=== PATIENT | female | born 1955 | race Caucasian/White ===

== ENCOUNTER 2016-04-18 00:58 | Emergency (ER) | payer MEDICARE, MEDICAID ==
[~2016-04-18] VITALS: Ht 152.4 cm; Wt 63.6 kg
[~2016-04-18 00:58] MED LIST: ABILIFY20 MG PO; ABILIFY30 MG PO; ADDERALL XR20 MG PO; ADDERALL20 MG PO; ADDERALL5 MG PO; ALPRAZOLAM; AMBIEN 10MG10 MG PO; AMBIEN5 MG PO; AMOXICILLIN 50500 MG PO; AMOXICILLIN 8751 TAB PO; ANTIPYRINE AND15 ML OT; ANTIVERT 25MG25 MG PO; ATENOLOL50 MG PO; ATOMOXETINE; BACTRIM DS 8001 TAB PO; BUPROPION PO; BUTALBITAL/APAP1 TA1 PO; CELEBREX50 MG PO; CEPHALEXIN; CEPHALEXIN500 M1 PO; CETIRIZINE; CIPRO 500MG TA500 MG PO; CLARITIN 1010 MG/TAB PO; CLINDAMYCIN HC300 MG PO; CYMBALTA 60MG60 MG PO; CYMBALTA PO; EFFEXOR-XR150 MG PO; FIORICET 325 MG1 TAB; HYDROCODONE/APAP; HYGROTON 2525 MG/TAB; HYGROTON 2525 MG/TAB PO; HYGROTON25 MG PO; INDOCIN 25MG CA25 MG PO; K-DUR 10 MEQ T10 MEQ PO; K-DUR 2020 MEQ PO; K-DUR20 MEQ PO; K-TAB20 PO; LAMICTAL 25MG T25 MG PO; LAMICTAL200 MG PO; LEVAQUIN 5500 MG/TA1 PO; LEVBID PO; LEXAPRO 5MG5 MG PO; LITHIUM CA150 MG/CAP PO; LOPERAMIDE2 MG PO; LORATADINE10 MG PO; LORTAB 10/500 51 TAB PO; LORTAB 5/500 501 TAB PO; MAG-OX 400400 MG/TAB PO; MOTRIN 800800 MG/TAB PO; MULTIPLE VITAMI1 CAP PO; NAPROXEN EC500 MG PO; NICODERM C14 MG/PATC TD; NORCO 325 MG-101 TAB PO; NORCO 325 MG-51 TAB PO; OMNICEF 300MG300 MG PO; PERCOCET 325 MG1 TAB PO; PERCOCET 5/321 UDTAB PO; PERCOCET 650 MG1 TAB PO; PREMARIN PO; PREVACID 30MG30 MG PO; PRILOSEC 20MG20 MG PO; PROAIR HFA0.09 MG/AC IH; PYRIDIUM 100MG100 MG PO; REGLAN 10MG10 MG/TAB PO; REMERON30 MG PO; RT ADVAIR 228 DISKUS IH; SUDAFED 12HR120 MG PO; TESSALON PERLE200 MG PO; TOPAMAX 25MG25 M1 PO; ULTRAM 50MG TAB50 MG PO; UNABLE; UNABLE TO ASSESS; VALIUM 10MG10 MG/TAB PO; ZESTRIL 20MG TA20 MG PO; ZITHROMAX 250M250 MG PO; ZITHROMAX Z PA250 MG PO; ZOFRAN8 MG PO; ZYPREXA ZYD10 MG/TAB PO; [UNRECOGNIZED DRUG - OTHER] PO; [UNRECOGNIZED DRUG - REMARK]; permethrin
[2016-04-18 02:28] VITALS: BP 111/80; PULSE 88; TEMP 96.8
== END 2016-04-18 02:31 | disposition home or self-care (01) ==
LOC: COL.ER 00:58
DX: J06.9 Acute upper respiratory infection, unspecified (principal)

== ENCOUNTER 2016-05-22 14:34 | Emergency (ER) | payer MEDICARE, MEDICAID ==
[~2016-05-22] VITALS: Ht 152.4 cm; Wt 67.7 kg
[2016-05-22 14:48] VITALS: BP 110/96; TEMP 98.9
[2016-05-22 16:36] VITALS: PULSE 77
== END 2016-05-22 16:36 | disposition home or self-care (01) ==
LOC: COL.ER 14:34
DX: S70.01XA Contusion of right hip, initial encounter (principal); W01.190A Fall on same level from slipping, tripping and stumbling with subsequent striking against furniture, initial encounter; Y92.009 Unspecified place in unspecified non-institutional (private) residence as the place of occurrence of the external cause; I10 Essential (primary) hypertension; F17.210 Nicotine dependence, cigarettes, uncomplicated

== ENCOUNTER → 2016-09-09 | Outpatient (CLI) | payer MEDICARE, MEDICAID ==
[~2016-09-09] MED LIST changes: +CEFTIN500 MG PO; +PERCOCET 325 MG1 TA2 PO
== END ==
LOC: BHSO 13:37
DX: F31.73 Bipolar disorder, in partial remission, most recent episode manic (principal)

== ENCOUNTER 2016-10-06 11:28 | Emergency (ER) | payer MEDICARE, MEDICAID ==
[~2016-10-06] VITALS: Ht 152.4 cm; Wt 63.6 kg
[~2016-10-06 11:28] MED LIST changes: -CEFTIN500 MG PO; -PERCOCET 325 MG1 TA2 PO
[2016-10-06 11:33] VITALS: BP 119/79; PULSE 87; TEMP 98
== END 2016-10-06 13:08 | disposition home or self-care (01) ==
LOC: COL.ER 11:28
DX: S22.32XA Fracture of one rib, left side, initial encounter for closed fracture (principal); F32.9 Major depressive disorder, single episode, unspecified; G43.909 Migraine, unspecified, not intractable, without status migrainosus; I10 Essential (primary) hypertension; K58.9 Irritable bowel syndrome, unspecified; F41.9 Anxiety disorder, unspecified; Z87.891 Personal history of nicotine dependence; Z90.12 Acquired absence of left breast and nipple; Z98.818 Other dental procedure status; W01.190A Fall on same level from slipping, tripping and stumbling with subsequent striking against furniture, initial encounter; Y92.009 Unspecified place in unspecified non-institutional (private) residence as the place of occurrence of the external cause

== ENCOUNTER 2016-10-16 14:35 | Emergency (ER) | payer MEDICARE, MEDICAID ==
[~2016-10-16] VITALS: Ht 152.4 cm; Wt 68.2 kg
[2016-10-16 14:41] VITALS: BP 109/63; TEMP 98.5
[2016-10-16 17:20] LABS: PH 6 (5-8); SQUAMOUS EPITHELIAL 0-2 /hpf; URINE APPEARANCE Clear; URINE BACTERIA None Seen /hpf; URINE BILIRUBIN Negative (NEGATIVE); URINE BLOOD Negative (NEGATIVE); URINE COLOR Yellow; URINE GLUCOSE Negative (NEGATIVE); URINE KETONE Negative (NEGATIVE); URINE RBC 0-2 /hpf; URINE UROBILINOGEN Negative (NEGATIVE)
[2016-10-16] MEDS ORDERED: PERCOCET 325 MG1 TA2 PO (19:00)
[2016-10-16] MEDS ORDERED: LEVAQUIN 5500 MG/TA1 PO (19:14)
[2016-10-16 19:17] VITALS: PULSE 84
== END 2016-10-16 19:17 | disposition home or self-care (01) ==
LOC: COL.ER 14:35
PROVIDERS: Nurse Practitioner
DX: S22.32XD Fracture of one rib, left side, subsequent encounter for fracture with routine healing (principal); W01.190D Fall on same level from slipping, tripping and stumbling with subsequent striking against furniture, subsequent encounter; R10.12 Left upper quadrant pain; J98.11 Atelectasis; I10 Essential (primary) hypertension; F32.9 Major depressive disorder, single episode, unspecified; F90.9 Attention-deficit hyperactivity disorder, unspecified type; F41.9 Anxiety disorder, unspecified; Z87.891 Personal history of nicotine dependence
CPT/HCPCS: A9284

== ENCOUNTER 2016-11-04 18:27 | Emergency (ER) | payer MEDICARE, MEDICAID ==
[~2016-11-04] VITALS: Ht 152.4 cm; Wt 63.6 kg
[~2016-11-04 18:27] MED LIST changes: +PERCOCET 325 MG1 TA2 PO
[2016-11-04 18:29] VITALS: TEMP 99.4
[2016-11-04 19:32] LABS: BASO # 0.1 (0.0-0.2); BASO % 0.7 % (0.0-2.0); EOS # 0.4 (0.0-0.7); EOS % 3.4 % (0-4.0); GRAN # 5.8 (1.4-6.5); GRAN % 56.2 % (42.2-75.2); HEMATOCRIT 41.9 % (37.0-47.0); HEMOGLOBIN 14.2 g/dl (12.5-16.0); LYMPH # 3.1 (1.2-3.4); LYMPH % 29.8 % (20.0-51.0); MEAN CELL VOLUME 84 fl (80.0-100.0); MEAN CORPUSCULAR HEMOGLOBIN 28 pg (27.0-31.0); MEAN CORPUSCULAR HGB CONC 34 g/dl (33.0-37.0); MEAN PLATELET VOLUME 10.3 fl (7.4-10.4); MONO % 9.4 % (1.7-9.3); PLATELET COUNT 289 K/mm3 (130-400); RED BLOOD COUNT 5.01 M/mm3 (4.10-5.30); REDCELL DISTRIBUTION WIDTH-CV 13.7 % (11.5-14.5); WHITE BLOOD COUNT 10.3 K/mm3 (4.8-10.8)
[2016-11-04 19:35] LABS: ADJUSTED CALCIUM 9.2 mg/dL (8.4-10.2); ALBUMIN 4.2 gm/dL (3.5-5.0); BILIRUBIN,TOTAL 0.5 mg/dL (0.0-1.0); CALCIUM 9.4 mg/dL (8.4-10.2); CREATININE, serum 0.95 mg/dL (0.52-1.25); POTASSIUM 3.8 mmol/L (3.4-5.0); TOTAL PROTEIN 7.4 gm/dL (6.4-8.2)
[2016-11-04 19:57] LABS: PH 5 (5-8); URINE APPEARANCE Cloudy; URINE BACTERIA None Seen /hpf; URINE BILIRUBIN Negative (NEGATIVE); URINE BLOOD Negative (NEGATIVE); URINE COLOR Yellow; URINE GLUCOSE Negative (NEGATIVE); URINE KETONE Negative (NEGATIVE); URINE UROBILINOGEN Negative (NEGATIVE)
[2016-11-04 20:03] LABS: URINE WBC >50 /hpf
[2016-11-04] MEDS ORDERED: CEFTIN500 MG PO (21:21)
[2016-11-04 21:31] VITALS: BP 112/78; PULSE 84
== END 2016-11-04 21:39 | disposition home or self-care (01) ==
LOC: COL.ER 18:27
PROVIDERS: Physician Assistant
DX: M54.89 Other dorsalgia (principal); N39.0 Urinary tract infection, site not specified; J98.11 Atelectasis; R06.02 Shortness of breath; R07.89 Other chest pain; R07.1 Chest pain on breathing; I10 Essential (primary) hypertension; F31.9 Bipolar disorder, unspecified; F90.9 Attention-deficit hyperactivity disorder, unspecified type

== ENCOUNTER 2016-12-11 11:45 | Emergency (ER) | payer MEDICARE, MEDICAID ==
[~2016-12-11] VITALS: Ht 152.4 cm; Wt 63.6 kg
[~2016-12-11 11:45] MED LIST changes: +CEFTIN500 MG PO
[2016-12-11 11:46] VITALS: TEMP 98.7
[2016-12-11 12:21] LABS: BASO # 0.1 (0.0-0.2); BASO % 0.8 % (0.0-2.0); EOS # 0.4 (0.0-0.7); EOS % 4.8 % (0-4.0); GRAN # 5.5 (1.4-6.5); GRAN % 65.9 % (42.2-75.2); HEMATOCRIT 41.1 % (37.0-47.0); HEMOGLOBIN 13.9 g/dl (12.5-16.0); LYMPH # 1.8 (1.2-3.4); MEAN CELL VOLUME 86 fl (80.0-100.0); MEAN CORPUSCULAR HEMOGLOBIN 29 pg (27.0-31.0); MEAN CORPUSCULAR HGB CONC 34 g/dl (33.0-37.0); MEAN PLATELET VOLUME 10.1 fl (7.4-10.4); MONO # 0.5 (0.1-0.6); PLATELET COUNT 249 K/mm3 (130-400); RED BLOOD COUNT 4.79 M/mm3 (4.10-5.30); REDCELL DISTRIBUTION WIDTH-CV 13.9 % (11.5-14.5); WHITE BLOOD COUNT 8.3 K/mm3 (4.8-10.8)
[2016-12-11 12:37] LABS: ADJUSTED CALCIUM 9.4 mg/dL (8.4-10.2); ALANINE AMINOTRANSFERASE 20 U/L (9-52); ALBUMIN 3.9 gm/dL (3.5-5.0); ALKALINE PHOSPHATASE 86 U/L (50-136); ANION GAP 9 mmol/L (7-16); BILIRUBIN,TOTAL 0.5 mg/dL (0.0-1.0); BLOOD UREA NITROGEN 13 mg/dL (7-17); CALCIUM 9.3 mg/dL (8.4-10.2); CARBON DIOXIDE 27 mmol/L (22-30); CHLORIDE 108 mmol/L (98-107); CREATININE, serum 1.02 mg/dL (0.52-1.25); GLUCOSE 107 mg/dL (74-106); POTASSIUM 4.3 mmol/L (3.4-5.0); SODIUM 144 mmol/L (137-145); TOTAL PROTEIN 6.9 gm/dL (6.4-8.2)
[2016-12-11 12:55] LABS: TROPONIN-I < 0.012 ng/mL (0.000-0.034)
[2016-12-11 14:07] VITALS: BP 110/66; PULSE 88
== END 2016-12-11 14:07 | disposition home or self-care (01) ==
LOC: COL.ER 11:45
PROVIDERS: Physician Assistant
DX: J40 Bronchitis, not specified as acute or chronic (principal); R09.1 Pleurisy; I10 Essential (primary) hypertension; F90.9 Attention-deficit hyperactivity disorder, unspecified type; F41.9 Anxiety disorder, unspecified; F31.9 Bipolar disorder, unspecified
CPT/HCPCS: J2270

== ENCOUNTER 2016-12-15 17:20 | Emergency (ER) | payer MEDICARE, MEDICAID ==
[~2016-12-15] VITALS: Ht 152.4 cm; Wt 63.6 kg
[2016-12-15 17:24] VITALS: TEMP 98.1
[2016-12-15 18:15] LABS: BASO # 0.1 (0.0-0.2); BASO % 0.7 % (0.0-2.0); EOS # 0.5 (0.0-0.7); EOS % 4.3 % (0-4.0); GRAN # 6.1 (1.4-6.5); HEMATOCRIT 39.8 % (37.0-47.0); HEMOGLOBIN 13.6 g/dl (12.5-16.0); LYMPH # 2.9 (1.2-3.4); LYMPH % 27.9 % (20.0-51.0); MEAN CELL VOLUME 85 fl (80.0-100.0); MEAN CORPUSCULAR HEMOGLOBIN 29 pg (27.0-31.0); MEAN CORPUSCULAR HGB CONC 34 g/dl (33.0-37.0); MEAN PLATELET VOLUME 10.9 fl (7.4-10.4); MONO # 0.8 (0.1-0.6); MONO % 7.6 % (1.7-9.3); PLATELET COUNT 262 K/mm3 (130-400); REDCELL DISTRIBUTION WIDTH-CV 13.5 % (11.5-14.5); WHITE BLOOD COUNT 10.4 K/mm3 (4.8-10.8)
[2016-12-15 18:22] LABS: INR 0.9 (0.8-3.0); PROTHROMBIN TIME 10.3 SECONDS (9.7-12.8)
[2016-12-15 18:23] LABS: ADJUSTED CALCIUM 9.3 mg/dL (8.4-10.2); ALANINE AMINOTRANSFERASE 23 U/L (9-52); ALBUMIN 3.8 gm/dL (3.5-5.0); ALKALINE PHOSPHATASE 85 U/L (50-136); ANION GAP 7 mmol/L (7-16); BILIRUBIN,TOTAL 0.4 mg/dL (0.0-1.0); BLOOD UREA NITROGEN 12 mg/dL (7-17); CALCIUM 9.1 mg/dL (8.4-10.2); CARBON DIOXIDE 24 mmol/L (22-30); CHLORIDE 107 mmol/L (98-107); CREATININE, serum 1.03 mg/dL (0.52-1.25); GLUCOSE 91 mg/dL (74-106); POTASSIUM 3.9 mmol/L (3.4-5.0); SODIUM 139 mmol/L (137-145); TOTAL PROTEIN 6.7 gm/dL (6.4-8.2)
[2016-12-15 18:25] LABS: PARTIAL THROMBOPLASTIN TIME 35.3 SECONDS (26.0-37.0)
[2016-12-15 18:42] LABS: TROPONIN-I < 0.012 ng/mL (0.000-0.034)
[2016-12-15 18:55] VITALS: BP 119/80; PULSE 84
== END 2016-12-15 19:05 | disposition home or self-care (01) ==
LOC: COL.ER 17:20
PROVIDERS: Family Medicine
DX: R07.89 Other chest pain (principal); F17.210 Nicotine dependence, cigarettes, uncomplicated
CPT/HCPCS: J3010

== ENCOUNTER 2016-12-19 14:42 | Emergency (ER) | payer MEDICARE, MEDICAID ==
[~2016-12-19] VITALS: Ht 152.4 cm; Wt 63.6 kg
[2016-12-19 14:48] VITALS: BP 103/67; PULSE 115; TEMP 97.3
[2016-12-19 17:04] LABS: BASO # 0.1 (0.0-0.2); BASO % 0.8 % (0.0-2.0); EOS # 0.3 (0.0-0.7); EOS % 3.4 % (0-4.0); GRAN # 5.5 (1.4-6.5); GRAN % 58.7 % (42.2-75.2); HEMATOCRIT 42.3 % (37.0-47.0); HEMOGLOBIN 14.4 g/dl (12.5-16.0); LYMPH # 2.6 (1.2-3.4); LYMPH % 27.8 % (20.0-51.0); MEAN CELL VOLUME 85 fl (80.0-100.0); MEAN CORPUSCULAR HEMOGLOBIN 29 pg (27.0-31.0); MEAN CORPUSCULAR HGB CONC 34 g/dl (33.0-37.0); MEAN PLATELET VOLUME 10.8 fl (7.4-10.4); MONO # 0.8 (0.1-0.6); PLATELET COUNT 281 K/mm3 (130-400); RED BLOOD COUNT 4.99 M/mm3 (4.10-5.30); REDCELL DISTRIBUTION WIDTH-CV 13.4 % (11.5-14.5); WHITE BLOOD COUNT 9.3 K/mm3 (4.8-10.8)
[2016-12-19 17:13] LABS: ADJUSTED CALCIUM 9.3 mg/dL (8.4-10.2); ALANINE AMINOTRANSFERASE 20 U/L (9-52); ALBUMIN 3.9 gm/dL (3.5-5.0); ALKALINE PHOSPHATASE 95 U/L (50-136); ANION GAP 8 mmol/L (7-16); BILIRUBIN,TOTAL 0.5 mg/dL (0.0-1.0); BLOOD UREA NITROGEN 16 mg/dL (7-17); CALCIUM 9.2 mg/dL (8.4-10.2); CARBON DIOXIDE 25 mmol/L (22-30); CHLORIDE 107 mmol/L (98-107); GLUCOSE 93 mg/dL (74-106); POTASSIUM 4.2 mmol/L (3.4-5.0); SODIUM 139 mmol/L (137-145); TOTAL PROTEIN 6.9 gm/dL (6.4-8.2)
[2016-12-19 17:25] LABS: TROPONIN-I < 0.012 ng/mL (0.000-0.034)
== END 2016-12-19 20:20 | disposition home or self-care (01) ==
LOC: COL.ER 14:42
PROVIDERS: Emergency Medicine
DX: R07.89 Other chest pain (principal); R07.81 Pleurodynia; I10 Essential (primary) hypertension; F31.9 Bipolar disorder, unspecified; F41.9 Anxiety disorder, unspecified; F90.9 Attention-deficit hyperactivity disorder, unspecified type; Z87.891 Personal history of nicotine dependence
CPT/HCPCS: J3010; J7030; Q9967

== ENCOUNTER → 2017-01-03 | Outpatient (CLI) | payer MEDICARE, MEDICAID ==
[~2017-01-03] MED LIST changes: +NORVASC 5MG5 MG/TAB PO; +TESSALON P100 MG/CAP PO
[2017-01-04 14:42] LABS: CHOLESTEROL RISK RATIO 3.9
== END ==
LOC: COL.LAB 14:49
PROVIDERS: Family Medicine
DX: E66.9 Obesity, unspecified (principal)

== ENCOUNTER 2017-01-18 18:22 | Emergency (ER) | payer MEDICARE, MEDICAID ==
[~2017-01-18] VITALS: Ht 152.4 cm; Wt 68.2 kg
[~2017-01-18 18:22] MED LIST changes: -NORVASC 5MG5 MG/TAB PO; -TESSALON P100 MG/CAP PO
[2017-01-18 18:26] VITALS: BP 126/90
[2017-01-18] MEDS ORDERED: ABILIFY30 MG PO (18:44)
[2017-01-18] MEDS ORDERED: CYMBALTA 60MG60 MG PO ×2 (18:45→18:46)
[2017-01-18] MEDS ORDERED: LEXAPRO 5MG5 MG PO (18:47)
[2017-01-18] MEDS ORDERED: NORVASC 5MG5 MG/TAB PO (18:47)
[2017-01-18 19:18] LABS: BASO # 0.1 (0.0-0.2); BASO % 0.4 % (0.0-2.0); EOS # 0.4 (0.0-0.7); EOS % 2.8 % (0-4.0); GRAN # 9.5 (1.4-6.5); GRAN % 74.8 % (42.2-75.2); HEMATOCRIT 38.1 % (37.0-47.0); HEMOGLOBIN 12.9 g/dl (12.5-16.0); LYMPH # 1.7 (1.2-3.4); LYMPH % 13.4 % (20.0-51.0); MEAN CELL VOLUME 85 fl (80.0-100.0); MEAN CORPUSCULAR HEMOGLOBIN 29 pg (27.0-31.0); MEAN CORPUSCULAR HGB CONC 34 g/dl (33.0-37.0); MEAN PLATELET VOLUME 10.4 fl (7.4-10.4); MONO % 7.9 % (1.7-9.3); PLATELET COUNT 269 K/mm3 (130-400); RED BLOOD COUNT 4.46 M/mm3 (4.10-5.30); REDCELL DISTRIBUTION WIDTH-CV 13.5 % (11.5-14.5); WHITE BLOOD COUNT 12.7 K/mm3 (4.8-10.8)
[2017-01-18 19:33] LABS: ADJUSTED CALCIUM 9.3 mg/dL (8.4-10.2); ALANINE AMINOTRANSFERASE 27 U/L (9-52); ALBUMIN 3.9 gm/dL (3.5-5.0); ALKALINE PHOSPHATASE 93 U/L (50-136); ANION GAP 7 mmol/L (7-16); BILIRUBIN,TOTAL 0.5 mg/dL (0.0-1.0); BLOOD UREA NITROGEN 13 mg/dL (7-17); CALCIUM 9.2 mg/dL (8.4-10.2); CARBON DIOXIDE 27 mmol/L (22-30); CHLORIDE 101 mmol/L (98-107); CREATININE, serum 0.88 mg/dL (0.52-1.25); GLUCOSE 102 mg/dL (74-106); POTASSIUM 4.7 mmol/L (3.4-5.0); SODIUM 136 mmol/L (137-145); TOTAL PROTEIN 7.2 gm/dL (6.4-8.2)
[2017-01-18 19:43] LABS: INFLUENZA B NEGATIVE
[2017-01-18 19:48] LABS: TROPONIN-I < 0.012 ng/mL (0.000-0.034)
[2017-01-18 19:49] LABS: LITHIUM < 0.2 mmol/L (0.6-1.2)
[2017-01-18] MEDS ORDERED: ZITHROMAX Z PA250 MG PO (20:04)
[2017-01-18] MEDS ORDERED: TESSALON P100 MG/CAP PO (20:04)
[2017-01-18 20:20] VITALS: PULSE 110; TEMP 98.7
== END 2017-01-18 20:30 | disposition home or self-care (01) ==
LOC: COL.ER 18:22
PROVIDERS: Emergency Medicine
DX: J06.9 Acute upper respiratory infection, unspecified (principal); F31.9 Bipolar disorder, unspecified; F41.9 Anxiety disorder, unspecified; Z87.891 Personal history of nicotine dependence
CPT/HCPCS: J7030

== ENCOUNTER 2017-01-21 18:02 | Emergency (ER) | payer MEDICARE, MEDICAID ==
[~2017-01-21] VITALS: Ht 152.4 cm; Wt 64.5 kg
[~2017-01-21 18:02] MED LIST changes: +NORVASC 5MG5 MG/TAB PO; +TESSALON P100 MG/CAP PO
[2017-01-21 18:04] VITALS: BP 115/75; TEMP 97.6
[2017-01-21] MEDS ORDERED: TESSALON P100 MG/CAP PO (18:48)
[2017-01-21 19:04] VITALS: PULSE 102
== END 2017-01-21 19:06 | disposition home or self-care (01) ==
LOC: COL.ER 18:02
DX: J20.9 Acute bronchitis, unspecified (principal); F31.9 Bipolar disorder, unspecified; F17.210 Nicotine dependence, cigarettes, uncomplicated

== ENCOUNTER → 2017-05-13 | Outpatient (CLI) | payer MEDICARE, MEDICAID | LOC: BHSO 15:33 | DX: F31.73 Bipolar disorder, in partial remission, most recent episode manic (principal) | CPT/HCPCS: G0463 ==

== ENCOUNTER 2017-08-14 13:59 | Emergency (ER) | payer MEDICARE, MEDICAID ==
[~2017-08-14] VITALS: Ht 152.4 cm; Wt 63.6 kg
[2017-08-14 14:01] VITALS: TEMP 97
[2017-08-14 14:57] LABS: BASO # 0.1 (0.0-0.2); BASO % 0.4 % (0.0-2.0); EOS # 0.4 (0.0-0.7); EOS % 3.2 % (0-4.0); GRAN # 8.8 (1.4-6.5); GRAN % 77.5 % (42.2-75.2); HEMATOCRIT 40.8 % (37.0-47.0); HEMOGLOBIN 13.5 g/dl (12.5-16.0); LYMPH # 1.4 (1.2-3.4); LYMPH % 12.5 % (20.0-51.0); MEAN CELL VOLUME 87 fl (80.0-100.0); MEAN CORPUSCULAR HEMOGLOBIN 29 pg (27.0-31.0); MEAN CORPUSCULAR HGB CONC 33 g/dl (33.0-37.0); MEAN PLATELET VOLUME 10.4 fl (7.4-10.4); MONO # 0.7 (0.1-0.6); PLATELET COUNT 270 K/mm3 (130-400); RED BLOOD COUNT 4.67 M/mm3 (4.10-5.30); REDCELL DISTRIBUTION WIDTH-CV 14.6 % (11.5-14.5)
[2017-08-14 15:13] LABS: ALANINE AMINOTRANSFERASE 22 U/L (9-52); ALBUMIN 3.7 gm/dL (3.5-5.0); ALKALINE PHOSPHATASE 93 U/L (50-136); ANION GAP 11 mmol/L (7-16); AST,SGOT 24 U/L (15-37); BILIRUBIN,TOTAL 0.3 mg/dL (0.0-1.0); BLOOD UREA NITROGEN 15 mg/dL (7-17); C-REACTIVE PROTEIN 2.5 mg/dL (0.0-0.9); CALCIUM 9.3 mg/dL (8.4-10.2); CARBON DIOXIDE 29 mmol/L (22-30); CHLORIDE 103 mmol/L (98-107); CREATINE KINASE 37 U/L (30-135); CREATININE, serum 0.96 mg/dL (0.52-1.25); GLUCOSE 111 mg/dL (74-106); SODIUM 143 mmol/L (137-145); TOTAL PROTEIN 7.3 gm/dL (6.4-8.2)
[2017-08-14 15:27] LABS: TROPONIN-I < 0.012 ng/mL (0.000-0.034)
[2017-08-14 15:53] LABS: COLLECTION METHOD CLEAN CATCH
[2017-08-14 16:03] LABS: MUCOUS Present /lpf; PH 6 (5-8); SQUAMOUS EPITHELIAL 0-2 /hpf; URINE APPEARANCE Clear; URINE BACTERIA None Seen /hpf; URINE BILIRUBIN Negative (NEGATIVE); URINE BLOOD Negative (NEGATIVE); URINE COLOR Yellow; URINE GLUCOSE Negative (NEGATIVE); URINE KETONE Negative (NEGATIVE); URINE LEUKOCYTE ESTERASE Trace (NEGATIVE); URINE NITRATE Negative (NEGATIVE); URINE PROTEIN(semi-quant) Negative (NEGATIVE); URINE RBC 0-2 /hpf; URINE UROBILINOGEN Negative (NEGATIVE)
[2017-08-14 18:22] LABS: TROPONIN-I < 0.012 ng/mL (0.000-0.034)
[2017-08-14 18:28] LABS: LITHIUM 0.3 mmol/L (0.6-1.2)
[2017-08-14 18:41] VITALS: BP 114/62; PULSE 97
[2017-08-14 18:49] LABS: LITHIUM 0.3 mmol/L (0.6-1.2)
== END 2017-08-14 19:04 | disposition home or self-care (01) ==
LOC: COL.ER 13:59
PROVIDERS: Emergency Medicine
DX: R07.9 Chest pain, unspecified (principal); Z86.59 Personal history of other mental and behavioral disorders
CPT/HCPCS: J7030; Q9967

== ENCOUNTER 2017-09-02 13:27 | Emergency (ER) | payer MEDICARE, MEDICAID ==
[~2017-09-02] VITALS: Ht 152.4 cm; Wt 63.6 kg
[2017-09-02 13:32] VITALS: BP 114/66; TEMP 98
[2017-09-02 15:09] VITALS: PULSE 92
== END 2017-09-02 15:10 | disposition home or self-care (01) ==
LOC: COL.ER 13:27
DX: G89.29 Other chronic pain (principal); M79.674 Pain in right toe(s); F90.9 Attention-deficit hyperactivity disorder, unspecified type

== ENCOUNTER → 2017-10-13 | Outpatient (CLI) | payer MEDICARE, MEDICAID | LOC: BHSO 10:40 | DX: F31.81 Bipolar II disorder (principal) | CPT/HCPCS: G0463 ==

== ENCOUNTER 2017-10-26 17:40 | Emergency (ER) | payer MEDICARE, MEDICAID ==
[~2017-10-26] VITALS: Ht 152.4 cm; Wt 63.6 kg
[2017-10-26 17:40] VITALS: BP 91/65; TEMP 97.6
[2017-10-26 18:55] LABS: BASO # 0.1 (0.0-0.2); BASO % 0.7 % (0.0-2.0); EOS # 0.3 (0.0-0.7); EOS % 3.3 % (0-4.0); GRAN # 5.5 (1.4-6.5); GRAN % 60.3 % (42.2-75.2); HEMATOCRIT 40.3 % (37.0-47.0); HEMOGLOBIN 13.4 g/dl (12.5-16.0); LYMPH # 2.5 (1.2-3.4); LYMPH % 26.8 % (20.0-51.0); MEAN CELL VOLUME 87 fl (80.0-100.0); MEAN CORPUSCULAR HEMOGLOBIN 29 pg (27.0-31.0); MEAN CORPUSCULAR HGB CONC 33 g/dl (33.0-37.0); MEAN PLATELET VOLUME 10.2 fl (7.4-10.4); MONO # 0.8 (0.1-0.6); MONO % 8.6 % (1.7-9.3); PLATELET COUNT 247 K/mm3 (130-400); RED BLOOD COUNT 4.66 M/mm3 (4.10-5.30); REDCELL DISTRIBUTION WIDTH-CV 13.5 % (11.5-14.5)
[2017-10-26 18:58] LABS: ALANINE AMINOTRANSFERASE 22 U/L (9-52); ALBUMIN 3.5 gm/dL (3.5-5.0); ALKALINE PHOSPHATASE 82 U/L (50-136); ANION GAP 7 mmol/L (7-16); AST,SGOT 19 U/L (15-37); BILIRUBIN,TOTAL 0.2 mg/dL (0.0-1.0); BLOOD UREA NITROGEN 13 mg/dL (7-17); CALCIUM 8.3 mg/dL (8.4-10.2); CARBON DIOXIDE 28 mmol/L (22-30); CHLORIDE 106 mmol/L (98-107); CREATININE, serum 1.05 mg/dL (0.52-1.25); GLUCOSE 88 mg/dL (74-106); POTASSIUM 3.9 mmol/L (3.4-5.0); PROTHROMBIN TIME 11.7 SECONDS (9.7-12.8); SODIUM 141 mmol/L (137-145); TOTAL PROTEIN 6.3 gm/dL (6.4-8.2)
[2017-10-26 19:12] LABS: TROPONIN-I < 0.012 ng/mL (0.000-0.034)
[2017-10-26 19:13] LABS: LITHIUM < 0.2 mmol/L (0.6-1.2)
[2017-10-26 19:50] VITALS: PULSE 60
== END 2017-10-26 19:50 | disposition home or self-care (01) ==
LOC: COL.ER 17:40
PROVIDERS: Emergency Medicine
DX: S70.01XA Contusion of right hip, initial encounter (principal); F31.9 Bipolar disorder, unspecified; I10 Essential (primary) hypertension; G43.909 Migraine, unspecified, not intractable, without status migrainosus; F90.9 Attention-deficit hyperactivity disorder, unspecified type; K58.9 Irritable bowel syndrome, unspecified; F12.90 Cannabis use, unspecified, uncomplicated; Z87.891 Personal history of nicotine dependence; W19.XXXA Unspecified fall, initial encounter; Y92.009 Unspecified place in unspecified non-institutional (private) residence as the place of occurrence of the external cause
CPT/HCPCS: J2405; J3010

== ENCOUNTER 2018-01-04 16:27 | Emergency (ER) | payer MEDICARE, MEDICAID ==
[~2018-01-04] VITALS: Ht 152.4 cm; Wt 63.6 kg
[2018-01-04 16:39] VITALS: TEMP 97.4
[2018-01-04 17:05] LABS: COLLECTION METHOD CLEAN CATCH
[2018-01-04 17:24] LABS: MUCOUS Present /lpf; PH 7 (5-8); SQUAMOUS EPITHELIAL 0-2 /hpf; URINE APPEARANCE Clear; URINE BACTERIA None Seen /hpf; URINE BILIRUBIN Negative (NEGATIVE); URINE BLOOD Negative (NEGATIVE); URINE COLOR Yellow; URINE GLUCOSE Negative (NEGATIVE); URINE KETONE Negative (NEGATIVE); URINE LEUKOCYTE ESTERASE Trace (NEGATIVE); URINE NITRATE Negative (NEGATIVE); URINE PROTEIN(semi-quant) Negative (NEGATIVE); URINE RBC 0-2 /hpf; URINE UROBILINOGEN Negative (NEGATIVE)
[2018-01-04 17:26] LABS: BASO # 0.1 (0.0-0.2); BASO % 0.7 % (0.0-2.0); EOS # 0.5 (0.0-0.7); EOS % 4.5 % (0-4.0); GRAN # 6.6 (1.4-6.5); GRAN % 62.2 % (42.2-75.2); HEMATOCRIT 40.6 % (37.0-47.0); HEMOGLOBIN 13.9 g/dl (12.5-16.0); LYMPH # 2.5 (1.2-3.4); MEAN CELL VOLUME 86 fl (80.0-100.0); MEAN CORPUSCULAR HEMOGLOBIN 30 pg (27.0-31.0); MEAN CORPUSCULAR HGB CONC 34 g/dl (33.0-37.0); MEAN PLATELET VOLUME 10.1 fl (7.4-10.4); MONO # 0.9 (0.1-0.6); MONO % 8.2 % (1.7-9.3); PLATELET COUNT 251 K/mm3 (130-400); RED BLOOD COUNT 4.71 M/mm3 (4.10-5.30); REDCELL DISTRIBUTION WIDTH-CV 13.8 % (11.5-14.5)
[2018-01-04 17:33] LABS: LITHIUM 0.3 mmol/L (0.6-1.2)
[2018-01-04 17:38] LABS: ALANINE AMINOTRANSFERASE 24 U/L (9-52); ALKALINE PHOSPHATASE 68 U/L (50-136); ANION GAP 3 mmol/L (7-16); AST,SGOT 19 U/L (15-37); BILIRUBIN,TOTAL 0.3 mg/dL (0.0-1.0); BLOOD UREA NITROGEN 17 mg/dL (7-17); C-REACTIVE PROTEIN 1.5 mg/dL (0.0-0.9); CALCIUM 9.2 mg/dL (8.4-10.2); CARBON DIOXIDE 29 mmol/L (22-30); CHLORIDE 104 mmol/L (98-107); CREATININE, serum 1.03 mg/dL (0.52-1.25); GLUCOSE 82 mg/dL (74-106); POTASSIUM 4.4 mmol/L (3.4-5.0); SODIUM 137 mmol/L (137-145)
[2018-01-04 17:47] LABS: TROPONIN-I < 0.012 ng/mL (0.000-0.034)
[2018-01-04 17:58] LABS: ERYTHROCYTE SEDIMENTATION RATE 12 mm/hr (0-30)
[2018-01-04 19:37] VITALS: BP 115/85; PULSE 80
== END 2018-01-04 19:43 | disposition home or self-care (01) ==
LOC: COL.ER 16:27
PROVIDERS: Emergency Medicine
DX: R51 Headache (principal); R53.81 Other malaise; I10 Essential (primary) hypertension
CPT/HCPCS: J2060; J2405; J7030

== ENCOUNTER 2018-02-12 18:15 | Emergency (ER) | payer MEDICARE, MEDICAID ==
[~2018-02-12] VITALS: Ht 152.4 cm; Wt 65.0 kg
[2018-02-12 18:26] VITALS: TEMP 96.4
[2018-02-12 18:53] LABS: BASO # 0.1 (0.0-0.2); BASO % 0.6 % (0.0-2.0); EOS # 0.4 (0.0-0.7); EOS % 3.4 % (0-4.0); GRAN # 6.5 (1.4-6.5); GRAN % 60.8 % (42.2-75.2); HEMOGLOBIN 15.4 g/dl (12.5-16.0); LYMPH % 28.2 % (20.0-51.0); MEAN CELL VOLUME 88 fl (80.0-100.0); MEAN CORPUSCULAR HEMOGLOBIN 30 pg (27.0-31.0); MEAN CORPUSCULAR HGB CONC 34 g/dl (33.0-37.0); MEAN PLATELET VOLUME 9.9 fl (7.4-10.4); MONO # 0.7 (0.1-0.6); MONO % 6.3 % (1.7-9.3); PLATELET COUNT 285 K/mm3 (130-400); RED BLOOD COUNT 5.11 M/mm3 (4.10-5.30); REDCELL DISTRIBUTION WIDTH-CV 13.7 % (11.5-14.5)
[2018-02-12 19:05] LABS: ALBUMIN 4.4 gm/dL (3.5-5.0); BILIRUBIN,TOTAL 0.5 mg/dL (0.0-1.0); C-REACTIVE PROTEIN 1.4 mg/dL (0.0-0.9); CALCIUM 9.1 mg/dL (8.4-10.2); CREATININE, serum 1.2 mg/dL (0.52-1.25); POTASSIUM 4.2 mmol/L (3.4-5.0); TOTAL PROTEIN 7.8 gm/dL (6.4-8.2)
[2018-02-12 19:46] LABS: COLLECTION METHOD CLEAN CATCH
[2018-02-12 19:57] LABS: MUCOUS Present /lpf; PH 6 (5-8); URINE APPEARANCE Clear; URINE BACTERIA None Seen /hpf; URINE BILIRUBIN Negative (NEGATIVE); URINE BLOOD Negative (NEGATIVE); URINE COLOR Yellow; URINE GLUCOSE Negative (NEGATIVE); URINE KETONE Negative (NEGATIVE); URINE LEUKOCYTE ESTERASE 1+ (NEGATIVE); URINE NITRATE Negative (NEGATIVE); URINE PROTEIN(semi-quant) Negative (NEGATIVE); URINE RBC 0-2 /hpf; URINE UROBILINOGEN Negative (NEGATIVE)
[2018-02-12] MEDS ORDERED: MACROBID 1100 MG/CAP PO (20:10)
[2018-02-12 20:23] VITALS: BP 104/72; PULSE 86
== END 2018-02-12 20:23 | disposition home or self-care (01) ==
LOC: COL.ER 18:15
PROVIDERS: Family Medicine
DX: N39.0 Urinary tract infection, site not specified (principal); R53.1 Weakness; I10 Essential (primary) hypertension; F17.210 Nicotine dependence, cigarettes, uncomplicated; K21.9 Gastro-esophageal reflux disease without esophagitis; F31.9 Bipolar disorder, unspecified
CPT/HCPCS: J7030

== ENCOUNTER 2018-03-13 14:18 | Emergency (ER) | payer MEDICARE, MEDICAID ==
[~2018-03-13] VITALS: Ht 152.4 cm; Wt 74.5 kg
[~2018-03-13 14:18] MED LIST changes: +MACROBID 1100 MG/CAP PO
[2018-03-13 14:32] VITALS: BP 110/67; PULSE 112; TEMP 97.5
== END 2018-03-13 15:45 | disposition left against medical advice (07) ==
LOC: COL.ER 14:18
DX: R51 Headache (principal)

== ENCOUNTER 2018-04-07 15:50 | Emergency (ER) | payer MEDICARE, MEDICAID ==
[~2018-04-07] VITALS: Ht 152.4 cm; Wt 65.0 kg
[2018-04-07 16:17] VITALS: BP 99/67; PULSE 105; TEMP 98.3
== END 2018-04-07 17:58 | disposition left against medical advice (07) ==
LOC: COL.ER 15:50
DX: R07.89 Other chest pain (principal); R20.2 Paresthesia of skin

== ENCOUNTER → 2018-04-18 | Outpatient (CLI) | payer MEDICARE, MEDICAID | LOC: BHSO 14:40 | DX: F31.76 Bipolar disorder, in full remission, most recent episode depressed (principal) | CPT/HCPCS: G0463 ==

== ENCOUNTER 2018-08-10 17:05 | Emergency (ER) | payer MEDICARE, MEDICAID ==
[~2018-08-10] VITALS: Ht 152.4 cm; Wt 63.6 kg
[2018-08-10 17:11] VITALS: TEMP 97
[2018-08-10 17:42] LABS: BASO % 0.7 % (0.0-2.0); EOS % 3.8 % (0-4.0); GRAN # 5.3 (1.4-6.5); GRAN % 52.1 % (42.2-75.2); HEMATOCRIT 48.3 % (37.0-47.0); HEMOGLOBIN 16.1 g/dl (12.5-16.0); LYMPH # 3.5 (1.2-3.4); LYMPH % 35.1 % (20.0-51.0); MEAN CELL VOLUME 89 fl (80.0-100.0); MEAN CORPUSCULAR HEMOGLOBIN 30 pg (27.0-31.0); MEAN CORPUSCULAR HGB CONC 33 g/dl (33.0-37.0); MEAN PLATELET VOLUME 10.1 fl (7.4-10.4); MONO # 0.8 (0.1-0.6); PLATELET COUNT 297 K/mm3 (130-400); RED BLOOD COUNT 5.44 M/mm3 (4.10-5.30); REDCELL DISTRIBUTION WIDTH-CV 13.2 % (11.5-14.5)
[2018-08-10 17:43] LABS: BASO # 0.1 (0.0-0.2); EOS # 0.4 (0.0-0.7)
[2018-08-10 17:53] LABS: ALBUMIN 4.4 gm/dL (3.5-5.0); BILIRUBIN,TOTAL 0.5 mg/dL (0.0-1.0); C-REACTIVE PROTEIN 1.7 mg/dL (0.0-0.9); CALCIUM 9.8 mg/dL (8.4-10.2); CREATININE, serum 1.13 (0.52-1.25); POTASSIUM 4.6 mmol/L (3.4-5.0); TOTAL PROTEIN 8.2 gm/dL (6.4-8.2)
[2018-08-10 17:55] LABS: LITHIUM 0.4 mmol/L (0.6-1.2)
[2018-08-10 18:18] LABS: ERYTHROCYTE SEDIMENTATION RATE 13 mm/hr (0-30)
[2018-08-10] MEDS ORDERED: CEFTIN500 MG PO (18:36)
[2018-08-10 19:33] VITALS: BP 103/74; PULSE 82
== END 2018-08-10 19:35 | disposition home or self-care (01) ==
LOC: COL.ER 17:05
PROVIDERS: Emergency Medicine
DX: J32.9 Chronic sinusitis, unspecified (principal); R51 Headache; I10 Essential (primary) hypertension
CPT/HCPCS: J2405; J3010; J7030

== ENCOUNTER 2018-08-23 20:12 | Emergency (ER) | payer MEDICARE, MEDICAID ==
[~2018-08-23] VITALS: Ht 152.4 cm; Wt 67.3 kg
[2018-08-23 20:12] VITALS: BP 122/94; TEMP 97.7
[2018-08-23 22:20] VITALS: PULSE 78
== END 2018-08-23 22:20 | disposition home or self-care (01) ==
LOC: COL.ER 20:12
DX: R51 Headache (principal); K27.9 Peptic ulcer, site unspecified, unspecified as acute or chronic, without hemorrhage or perforation; K58.9 Irritable bowel syndrome, unspecified; F99 Mental disorder, not otherwise specified
CPT/HCPCS: J2060; J2765; J3010; J7030

== ENCOUNTER → 2018-10-02 | Outpatient (CLI) | payer MEDICARE, MEDICAID | LOC: BHSO 13:41 | DX: F31.76 Bipolar disorder, in full remission, most recent episode depressed (principal) | CPT/HCPCS: G0463 ==

== ENCOUNTER 2018-12-04 18:45 | Emergency (ER) | payer MEDICARE, MEDICAID ==
[~2018-12-04] VITALS: Ht 152.4 cm; Wt 63.6 kg
[2018-12-04 18:49] VITALS: TEMP 99
[2018-12-04 19:30] LABS: BASO # 0.1 (0.0-0.2); BASO % 0.6 % (0.0-2.0); EOS # 0.5 (0.0-0.7); EOS % 5.8 % (0-4.0); GRAN % 53.2 % (42.2-75.2); HEMATOCRIT 41.6 % (37.0-47.0); HEMOGLOBIN 14.1 g/dl (12.5-16.0); LYMPH % 31.5 % (20.0-51.0); MEAN CELL VOLUME 87 fl (80.0-100.0); MEAN CORPUSCULAR HEMOGLOBIN 30 pg (27.0-31.0); MEAN CORPUSCULAR HGB CONC 34 g/dl (33.0-37.0); MEAN PLATELET VOLUME 10.2 fl (7.4-10.4); MONO # 0.8 (0.1-0.6); MONO % 8.6 % (1.7-9.3); PLATELET COUNT 269 K/mm3 (130-400); RED BLOOD COUNT 4.76 M/mm3 (4.10-5.30); REDCELL DISTRIBUTION WIDTH-CV 13.2 % (11.5-14.5)
[2018-12-04 19:42] LABS: ALBUMIN 3.8 gm/dL (3.5-5.0); BILIRUBIN,TOTAL 0.3 mg/dL (0.0-1.0); CALCIUM 9.7 mg/dL (8.4-10.2); CREATININE, serum 1.04 (0.52-1.25); POTASSIUM 4.4 mmol/L (3.4-5.0); TOTAL PROTEIN 6.6 gm/dL (6.4-8.2)
[2018-12-04 19:43] LABS: LITHIUM 0.3 mmol/L (0.6-1.2)
[2018-12-04 19:53] LABS: ERYTHROCYTE SEDIMENTATION RATE 13 mm/hr (0-30)
[2018-12-04 20:55] VITALS: BP 101/61; PULSE 94
== END 2018-12-04 20:58 | disposition home or self-care (01) ==
LOC: COL.ER 18:45
PROVIDERS: Emergency Medicine
DX: G89.18 Other acute postprocedural pain (principal); M79.671 Pain in right foot; I10 Essential (primary) hypertension; Z98.890 Other specified postprocedural states
CPT/HCPCS: J3010

== ENCOUNTER 2018-12-07 20:19 | Emergency (ER) | payer MEDICARE, MEDICAID ==
[~2018-12-07] VITALS: Ht 152.4 cm; Wt 63.6 kg
[2018-12-07 20:24] VITALS: BP 117/62; PULSE 84; TEMP 98
== END 2018-12-07 23:37 | disposition left against medical advice (07) ==
LOC: COL.ER 20:19
DX: M25.571 Pain in right ankle and joints of right foot (principal)

== ENCOUNTER 2018-12-28 15:13 | Emergency (ER) | payer MEDICARE, MEDICAID ==
[~2018-12-28] VITALS: Ht 152.4 cm; Wt 63.6 kg
[2018-12-28 15:36] VITALS: TEMP 98.5
[2018-12-28 19:05] VITALS: BP 111/70; PULSE 89
== END 2018-12-28 19:05 | disposition home or self-care (01) ==
LOC: COL.ER 15:13
DX: G43.909 Migraine, unspecified, not intractable, without status migrainosus (principal)
CPT/HCPCS: J1170; J2060; J2550; J7030

== ENCOUNTER 2019-01-03 19:45 | Emergency (ER) | payer MEDICARE, MEDICAID ==
[~2019-01-03] VITALS: Ht 152.4 cm; Wt 59.1 kg
[2019-01-03 21:28] VITALS: BP 100/75; PULSE 81
== END 2019-01-03 21:28 | disposition home or self-care (01) ==
LOC: COL.ER 19:45
DX: M25.571 Pain in right ankle and joints of right foot (principal); I10 Essential (primary) hypertension; F17.210 Nicotine dependence, cigarettes, uncomplicated; F31.9 Bipolar disorder, unspecified; G43.909 Migraine, unspecified, not intractable, without status migrainosus
CPT/HCPCS: J3010

== ENCOUNTER → 2019-02-16 | Outpatient (CLI) | payer MEDICARE, MEDICAID | LOC: COL.RAD 14:00 | DX: J40 Bronchitis, not specified as acute or chronic (principal); F17.210 Nicotine dependence, cigarettes, uncomplicated ==

== ENCOUNTER 2019-03-10 18:39 | Emergency (ER) | payer MEDICARE, MEDICAID ==
[~2019-03-10] VITALS: Ht 152.4 cm; Wt 64.1 kg
[2019-03-10 18:49] VITALS: BP 111/82; TEMP 97.5
[2019-03-10 19:58] LABS: BASO # 0.1 (0.0-0.2); EOS # 0.5 (0.0-0.7); EOS % 5.1 % (0-4.0); GRAN # 6.3 (1.4-6.5); HEMATOCRIT 44.7 % (37.0-47.0); HEMOGLOBIN 15.1 g/dl (12.5-16.0); LYMPH # 2.8 (1.2-3.4); LYMPH % 26.6 % (20.0-51.0); MEAN CELL VOLUME 88 fl (80.0-100.0); MEAN CORPUSCULAR HEMOGLOBIN 30 pg (27.0-31.0); MEAN CORPUSCULAR HGB CONC 34 g/dl (33.0-37.0); MEAN PLATELET VOLUME 10.3 fl (7.4-10.4); MONO # 0.7 (0.1-0.6); PLATELET COUNT 265 K/mm3 (130-400); RED BLOOD COUNT 5.06 M/mm3 (4.10-5.30); REDCELL DISTRIBUTION WIDTH-CV 13.5 % (11.5-14.5)
[2019-03-10 20:09] LABS: ALBUMIN 4.3 gm/dL (3.5-5.0); BILIRUBIN,TOTAL 0.4 mg/dL (0.0-1.0); CALCIUM 9.7 mg/dL (8.4-10.2); CREATININE, serum 1.41 (0.52-1.25); POTASSIUM 4.1 mmol/L (3.4-5.0); TOTAL PROTEIN 7.5 gm/dL (6.4-8.2); URIC ACID 5.7 mg/dL (2.5-6.2)
[2019-03-10] MEDS ORDERED: NORCO 325 MG-51 TAB PO (20:30)
[2019-03-10 20:40] VITALS: PULSE 91
== END 2019-03-10 20:40 | disposition home or self-care (01) ==
LOC: COL.ER 18:39
PROVIDERS: Nurse Practitioner Primary Care
DX: M79.674 Pain in right toe(s) (principal); I10 Essential (primary) hypertension; F31.9 Bipolar disorder, unspecified; F41.9 Anxiety disorder, unspecified; F90.9 Attention-deficit hyperactivity disorder, unspecified type

== ENCOUNTER → 2019-04-13 | Outpatient (CLI) | payer MEDICARE, MEDICAID | LOC: BHSO 11:25 | DX: F31.76 Bipolar disorder, in full remission, most recent episode depressed (principal) | CPT/HCPCS: G0463 ==

== ENCOUNTER 2019-06-22 23:17 | Emergency (ER) | payer MEDICARE, MEDICAID ==
[~2019-06-22] VITALS: Ht 152.4 cm; Wt 61.4 kg
[2019-06-22 23:19] VITALS: TEMP 98.6
[2019-06-22 23:41] LABS: BASO # 0.1 (0.0-0.2); BASO % 0.7 % (0.0-2.0); EOS # 0.7 (0.0-0.7); EOS % 6.5 % (0-4.0); GRAN # 5.7 (1.4-6.5); GRAN % 56.5 % (42.2-75.2); HEMATOCRIT 41.8 % (37.0-47.0); HEMOGLOBIN 13.8 g/dl (12.5-16.0); LYMPH # 2.8 (1.2-3.4); LYMPH % 27.4 % (20.0-51.0); MEAN CELL VOLUME 89 fl (80.0-100.0); MEAN CORPUSCULAR HEMOGLOBIN 29 pg (27.0-31.0); MEAN CORPUSCULAR HGB CONC 33 g/dl (33.0-37.0); MEAN PLATELET VOLUME 10.7 fl (7.4-10.4); MONO # 0.9 (0.1-0.6); MONO % 8.7 % (1.7-9.3); PLATELET COUNT 244 K/mm3 (130-400); RED BLOOD COUNT 4.72 M/mm3 (4.10-5.30); REDCELL DISTRIBUTION WIDTH-CV 13.4 % (11.5-14.5)
[2019-06-22 23:46] LABS: ALBUMIN 4.1 gm/dL (3.5-5.0); BILIRUBIN,TOTAL 0.3 mg/dL (0.0-1.0); CALCIUM 9.5 mg/dL (8.4-10.2); CREATININE, serum 1.11 (0.52-1.25); POTASSIUM 4.2 mmol/L (3.4-5.0); TOTAL PROTEIN 6.9 gm/dL (6.4-8.2)
[2019-06-23 04:33] VITALS: BP 100/59; PULSE 75
[2019-06-28] MEDS ORDERED: PHENERGAN 25 TA25 MG PO (06:03)
[2019-06-28] MEDS ORDERED: FIORICET 325 MG1 TA1 PO (07:25)
== END 2019-06-23 04:33 | disposition home or self-care (01) ==
LOC: COL.ER 23:17
PROVIDERS: Emergency Medicine
DX: G43.909 Migraine, unspecified, not intractable, without status migrainosus (principal); F31.9 Bipolar disorder, unspecified; I10 Essential (primary) hypertension; F41.9 Anxiety disorder, unspecified
CPT/HCPCS: J1630; J2060; J2405; J2550; J3010; J7030

== ENCOUNTER 2019-08-25 17:04 | Emergency (ER) | payer MEDICARE, MEDICAID ==
[~2019-08-25] VITALS: Ht 152.4 cm; Wt 63.6 kg
[~2019-08-25 17:04] MED LIST changes: +FIORICET 325 MG1 TA1 PO; +PHENERGAN 25 TA25 MG PO
[2019-08-25 17:08] VITALS: TEMP 97.4
[2019-08-25 17:32] LABS: BASO # 0.1 (0.0-0.2); BASO % 0.8 % (0.0-2.0); EOS # 0.3 (0.0-0.7); GRAN # 6.4 (1.4-6.5); GRAN % 65.5 % (42.2-75.2); HEMATOCRIT 49.2 % (37.0-47.0); HEMOGLOBIN 16.5 g/dl (12.5-16.0); LYMPH # 2.3 (1.2-3.4); LYMPH % 24.1 % (20.0-51.0); MEAN CELL VOLUME 87 fl (80.0-100.0); MEAN CORPUSCULAR HEMOGLOBIN 29 pg (27.0-31.0); MEAN CORPUSCULAR HGB CONC 34 g/dl (33.0-37.0); MEAN PLATELET VOLUME 10.1 fl (7.4-10.4); MONO # 0.6 (0.1-0.6); MONO % 6.2 % (1.7-9.3); PLATELET COUNT 234 K/mm3 (130-400); RED BLOOD COUNT 5.66 M/mm3 (4.10-5.30); REDCELL DISTRIBUTION WIDTH-CV 12.8 % (11.5-14.5)
[2019-08-25 17:41] LABS: ALANINE AMINOTRANSFERASE 18 U/L (4-34); ALBUMIN 4.6 gm/dL (3.5-5.0); ALKALINE PHOSPHATASE 94 U/L (50-136); ANION GAP 7 mmol/L (7-16); AST,SGOT 27 U/L (15-37); BILIRUBIN,TOTAL 0.7 mg/dL (0.0-1.0); BLOOD UREA NITROGEN 20 mg/dL (7-17); CALCIUM 10.1 mg/dL (8.4-10.2); CARBON DIOXIDE 26 mmol/L (22-30); CHLORIDE 104 mmol/L (98-107); CREATININE, serum 1.12 (0.52-1.25); GLUCOSE 137 mg/dL (74-106); POTASSIUM 4.3 mmol/L (3.4-5.0); SODIUM 138 mmol/L (137-145)
[2019-08-25 17:58] LABS: COLLECTION METHOD CLEAN CATCH
[2019-08-25 17:58] LABS: TROPONIN-I < 0.012 ng/mL (0.000-0.035)
[2019-08-25 18:08] LABS: MUCOUS Present /lpf; PH 5 (5-8); SQUAMOUS EPITHELIAL 0-2 /hpf; URINE APPEARANCE Hazy; URINE BACTERIA None Seen /hpf; URINE BILIRUBIN Positive (NEGATIVE); URINE BLOOD Negative (NEGATIVE); URINE COLOR Amber; URINE GLUCOSE Negative (NEGATIVE); URINE KETONE Trace (NEGATIVE); URINE LEUKOCYTE ESTERASE Trace (NEGATIVE); URINE NITRATE Negative (NEGATIVE); URINE PROTEIN(semi-quant) 1+ (NEGATIVE); URINE RBC 0-2 /hpf
[2019-08-25] MEDS ORDERED: FLEXERIL 1010 MG/TAB PO (19:41)
[2019-08-25] MEDS ORDERED: CEFTIN 250250 MG/TAB PO (19:41)
[2019-08-25 19:55] VITALS: BP 121/70; PULSE 86
== END 2019-08-25 19:55 | disposition home or self-care (01) ==
LOC: COL.ER 17:04
PROVIDERS: Nurse Practitioner
DX: M54.6 Pain in thoracic spine (principal); N39.0 Urinary tract infection, site not specified; I10 Essential (primary) hypertension; F41.9 Anxiety disorder, unspecified; F31.9 Bipolar disorder, unspecified; F17.210 Nicotine dependence, cigarettes, uncomplicated
CPT/HCPCS: J1170; J3360; J7030

== ENCOUNTER 2019-09-20 19:37 | Emergency (ER) | payer MEDICARE, MEDICAID ==
[~2019-09-20] VITALS: Ht 152.4 cm; Wt 63.6 kg
[~2019-09-20 19:37] MED LIST changes: +CEFTIN 250250 MG/TAB PO; +FLEXERIL 1010 MG/TAB PO
[2019-09-20 19:38] VITALS: TEMP 98.3
[2019-09-20] MEDS ORDERED: FIORICET 325 MG1 TA1 PO (21:06)
[2019-09-20] MEDS ORDERED: PROMETHAZINE12.5 M5 PO (21:45)
[2019-09-20 22:08] VITALS: BP 103/68; PULSE 80
== END 2019-09-20 22:38 | disposition home or self-care (01) ==
LOC: COL.ER 19:37
DX: G43.909 Migraine, unspecified, not intractable, without status migrainosus (principal); I10 Essential (primary) hypertension; F31.9 Bipolar disorder, unspecified; F90.9 Attention-deficit hyperactivity disorder, unspecified type; F17.210 Nicotine dependence, cigarettes, uncomplicated
CPT/HCPCS: J1885; J2550; J7030

== ENCOUNTER 2019-10-08 19:51 | Emergency (ER) | payer MEDICARE, MEDICAID ==
[~2019-10-08 19:51] MED LIST changes: +PROMETHAZINE12.5 M5 PO
[2019-10-08 19:52] VITALS: TEMP 98.2
[2019-10-08 20:00] VITALS: BP 119/71; PULSE 93
== END 2019-10-08 20:00 | disposition home or self-care (01) ==
LOC: COL.ER 19:51
DX: G43.909 Migraine, unspecified, not intractable, without status migrainosus (principal); F41.9 Anxiety disorder, unspecified; F31.9 Bipolar disorder, unspecified; F17.210 Nicotine dependence, cigarettes, uncomplicated
CPT/HCPCS: J1170; J1790; J1885

== ENCOUNTER → 2019-10-30 | Outpatient (CLI) | payer MEDICARE, MEDICAID | LOC: BHSO 13:53 | DX: F31.75 Bipolar disorder, in partial remission, most recent episode depressed (principal) | CPT/HCPCS: G0463 ==

== ENCOUNTER → 2020-01-21 | Outpatient (CLI) | payer MEDICARE, MEDICAID ==
[~2020-01-21] MED LIST changes: +ZOFRAN ODT4 MG PO
== END ==
LOC: MC.RAD 14:55
DX: Z12.31 Encounter for screening mammogram for malignant neoplasm of breast (principal)

== ENCOUNTER 2020-08-14 12:05 | Emergency (ER) | payer MEDICARE, MEDICAID ==
[~2020-08-14] VITALS: Ht 152.4 cm; Wt 62.7 kg
[~2020-08-14 12:05] MED LIST changes: +PREDNISONE20 MG PO
[2020-08-14 12:18] VITALS: TEMP 98.3
[2020-08-14 13:45] VITALS: BP 118/83; PULSE 65
== END 2020-08-14 13:45 | disposition home or self-care (01) ==
LOC: COL.ER 12:05
DX: S00.93XA Contusion of unspecified part of head, initial encounter (principal); S50.12XA Contusion of left forearm, initial encounter; I10 Essential (primary) hypertension; F31.9 Bipolar disorder, unspecified; F41.9 Anxiety disorder, unspecified; F90.9 Attention-deficit hyperactivity disorder, unspecified type; Z87.891 Personal history of nicotine dependence; Z88.0 Allergy status to penicillin; Z88.6 Allergy status to analgesic agent; Z79.899 Other long term (current) drug therapy; W06.XXXA Fall from bed, initial encounter; Y92.009 Unspecified place in unspecified non-institutional (private) residence as the place of occurrence of the external cause

== ENCOUNTER 2020-08-28 15:17 | Emergency (ER) | payer MEDICARE, MEDICAID ==
[~2020-08-28] VITALS: Ht 152.4 cm; Wt 66.4 kg
[2020-08-28] MEDS ORDERED: PERCOCET 325 MG1 TA2 PO (16:24)
[2020-08-28 16:31] VITALS: BP 115/67; PULSE 86; TEMP 98.3
== END 2020-08-28 16:31 | disposition home or self-care (01) ==
LOC: COL.ER 15:17
DX: S50.12XA Contusion of left forearm, initial encounter (principal); F90.9 Attention-deficit hyperactivity disorder, unspecified type; G47.00 Insomnia, unspecified; Z87.891 Personal history of nicotine dependence; Z79.899 Other long term (current) drug therapy; W01.198A Fall on same level from slipping, tripping and stumbling with subsequent striking against other object, initial encounter

== ENCOUNTER → 2020-10-16 | Outpatient (CLI) | payer MEDICARE, MEDICAID ==
[~2020-10-16] MED LIST changes: +DOXYCYCLINE 10100 MG PO; +PREDNISONE50 MG PO
== END ==
LOC: COL.RAD 12:47
DX: E04.1 Nontoxic single thyroid nodule (principal); E03.9 Hypothyroidism, unspecified; E05.90 Thyrotoxicosis, unspecified without thyrotoxic crisis or storm

== ENCOUNTER 2020-12-10 00:01 | Emergency (ER) | payer MEDICARE, MEDICAID ==
[~2020-12-10 00:01] MED LIST changes: -DOXYCYCLINE 10100 MG PO; -PREDNISONE50 MG PO
[2020-12-10 00:02] VITALS: TEMP 97.6
[2020-12-10 00:32] LABS: BASO # 0.1 (0.0-0.2); BASO % 0.6 % (0.0-2.0); EOS # 0.5 (0.0-0.7); EOS % 5.5 % (0-4.0); GRAN # 4.8 (1.4-6.5); GRAN % 52.7 % (42.2-75.2); HEMATOCRIT 40.2 % (37.0-47.0); HEMOGLOBIN 13.4 g/dl (12.5-16.0); LYMPH # 2.7 (1.2-3.4); LYMPH % 29.8 % (20.0-51.0); MEAN CELL VOLUME 85 fl (80.0-100.0); MEAN CORPUSCULAR HEMOGLOBIN 28 pg (27.0-31.0); MEAN CORPUSCULAR HGB CONC 33 g/dl (33.0-37.0); MEAN PLATELET VOLUME 10.6 fl (7.4-10.4); MONO % 11.2 % (1.7-9.3); PLATELET COUNT 237 K/mm3 (130-400); RED BLOOD COUNT 4.75 M/mm3 (4.10-5.30); REDCELL DISTRIBUTION WIDTH-CV 12.5 % (11.5-14.5)
[2020-12-10 00:44] LABS: ANION GAP 6 mmol/L (7-16); BLOOD UREA NITROGEN 16 mg/dL (7-17); CALCIUM 9.4 mg/dL (8.4-10.2); CARBON DIOXIDE 26 mmol/L (22-30); CHLORIDE 109 mmol/L (98-107); CREATININE, serum 0.76 (0.52-1.25); GLUCOSE 107 mg/dL (74-106); SODIUM 141 mmol/L (137-145)
[2020-12-10 01:09] LABS: STREP SCREEN NEGATIVE
[2020-12-10 01:30] LABS: TSH w REFLEX < 0.003 uIU/mL (0.350-4.940)
[2020-12-10] MEDS ORDERED: DOXYCYCLINE 10100 MG PO (02:26)
[2020-12-10] MEDS ORDERED: PREDNISONE50 MG PO (02:26)
[2020-12-10 02:40] VITALS: BP 124/70; PULSE 78
== END 2020-12-10 02:40 | disposition home or self-care (01) ==
LOC: COL.ER 00:01
PROVIDERS: Emergency Medicine
DX: R13.10 Dysphagia, unspecified (principal); I10 Essential (primary) hypertension; F41.9 Anxiety disorder, unspecified; F90.9 Attention-deficit hyperactivity disorder, unspecified type; F31.9 Bipolar disorder, unspecified; Z87.891 Personal history of nicotine dependence; Z79.899 Other long term (current) drug therapy

== ENCOUNTER → 2020-12-24 | Outpatient (CLI) | payer MEDICARE, MEDICAID ==
[~2020-12-24] MED LIST changes: +DOXYCYCLINE 10100 MG PO; +PREDNISONE50 MG PO
== END ==
LOC: COL.RAD 12:04
DX: Z13.6 Encounter for screening for cardiovascular disorders (principal); Z82.49 Family history of ischemic heart disease and other diseases of the circulatory system

== ENCOUNTER 2020-12-29 14:39 | Emergency (ER) | payer MEDICARE, MEDICAID ==
[~2020-12-29] VITALS: Ht 152.4 cm; Wt 64.1 kg
[2020-12-29 15:18] VITALS: TEMP 98.2
[2020-12-29 15:59] LABS: BASO # 0.1 (0.0-0.2); BASO % 0.6 % (0.0-2.0); EOS # 0.6 (0.0-0.7); EOS % 6.6 % (0-4.0); GRAN % 55.5 % (42.2-75.2); HEMATOCRIT 43.2 % (37.0-47.0); HEMOGLOBIN 14.2 g/dl (12.5-16.0); LYMPH # 2.2 (1.2-3.4); LYMPH % 24.9 % (20.0-51.0); MEAN CELL VOLUME 84 fl (80.0-100.0); MEAN CORPUSCULAR HEMOGLOBIN 28 pg (27.0-31.0); MEAN CORPUSCULAR HGB CONC 33 g/dl (33.0-37.0); MEAN PLATELET VOLUME 11.3 fl (7.4-10.4); MONO # 1.1 (0.1-0.6); MONO % 12.2 % (1.7-9.3); PLATELET COUNT 244 K/mm3 (130-400); RED BLOOD COUNT 5.16 M/mm3 (4.10-5.30); REDCELL DISTRIBUTION WIDTH-CV 12.6 % (11.5-14.5)
[2020-12-29 16:09] LABS: ALANINE AMINOTRANSFERASE 15 U/L (4-34); ALBUMIN 3.9 gm/dL (3.5-5.0); ALKALINE PHOSPHATASE 95 U/L (50-136); ANION GAP 0 mmol/L (7-16); AST,SGOT 52 U/L (15-37); BILIRUBIN,TOTAL 0.4 mg/dL (0.0-1.0); BLOOD UREA NITROGEN 21 mg/dL (7-17); CALCIUM 9.2 mg/dL (8.4-10.2); CARBON DIOXIDE 29 mmol/L (22-30); CHLORIDE 107 mmol/L (98-107); CREATININE, serum 0.82 (0.52-1.25); GLUCOSE 96 mg/dL (74-106); POTASSIUM 4.9 mmol/L (3.4-5.0); SODIUM 136 mmol/L (137-145)
[2020-12-29 16:20] LABS: TROPONIN-I < 0.012 ng/mL (0.000-0.035)
[2020-12-29 20:25] LABS: COLLECTION METHOD CLEAN CATCH
[2020-12-29 20:31] LABS: PH 7 (5-8); SQUAMOUS EPITHELIAL None Seen /hpf; URINE APPEARANCE Clear; URINE BACTERIA None Seen /hpf; URINE BILIRUBIN Negative (NEGATIVE); URINE BLOOD Negative (NEGATIVE); URINE COLOR Yellow; URINE GLUCOSE Negative (NEGATIVE); URINE KETONE Negative (NEGATIVE); URINE LEUKOCYTE ESTERASE Negative (NEGATIVE); URINE NITRATE Negative (NEGATIVE); URINE PROTEIN(semi-quant) Negative (NEGATIVE); URINE RBC 0-2 /hpf; URINE UROBILINOGEN Negative (NEGATIVE)
[2020-12-29 20:43] LABS: TRICYCLIC ANTIDEPRESS URINE NEGATIVE
[2020-12-29 21:40] VITALS: BP 100/88; PULSE 103
== END 2020-12-29 21:40 | disposition home or self-care (01) ==
LOC: COL.ER 14:39
PROVIDERS: Nurse Practitioner Family
DX: G43.909 Migraine, unspecified, not intractable, without status migrainosus (principal); F12.90 Cannabis use, unspecified, uncomplicated; F15.90 Other stimulant use, unspecified, uncomplicated; R29.6 Repeated falls; I10 Essential (primary) hypertension; F41.9 Anxiety disorder, unspecified; F90.9 Attention-deficit hyperactivity disorder, unspecified type; Z79.899 Other long term (current) drug therapy
CPT/HCPCS: J0595; J1200; J2405; J7030; Q9967

== ENCOUNTER → 2020-12-30 | Outpatient (CLI) | payer MEDICARE, MEDICAID | LOC: COL.RAD 14:11 | DX: R91.8 Other nonspecific abnormal finding of lung field (principal) ==

== ENCOUNTER 2021-01-07 21:07 | Emergency (ER) | payer MEDICARE, MEDICAID ==
[~2021-01-07] VITALS: Ht 152.4 cm; Wt 63.6 kg
[2021-01-07 22:21] VITALS: TEMP 98.1
[2021-01-08 00:50] VITALS: BP 114/70; PULSE 80
== END 2021-01-08 00:58 | disposition home or self-care (01) ==
LOC: COL.ER 21:07
DX: M25.552 Pain in left hip (principal); M54.5 Low back pain; F41.9 Anxiety disorder, unspecified; F32.9 Major depressive disorder, single episode, unspecified; F90.9 Attention-deficit hyperactivity disorder, unspecified type; W01.198A Fall on same level from slipping, tripping and stumbling with subsequent striking against other object, initial encounter

== ENCOUNTER 2021-01-12 18:39 | Emergency (ER) | payer MEDICARE, MEDICAID ==
[~2021-01-12] VITALS: Ht 167.6 cm; Wt 59.1 kg
[2021-01-12 18:43] VITALS: TEMP 98.6
[2021-01-12 21:30] VITALS: BP 120/75; PULSE 67
== END 2021-01-12 21:31 | disposition home or self-care (01) ==
LOC: COL.ER 18:39
DX: M25.552 Pain in left hip (principal); M25.511 Pain in right shoulder; K58.9 Irritable bowel syndrome, unspecified; Z79.899 Other long term (current) drug therapy; W01.0XXA Fall on same level from slipping, tripping and stumbling without subsequent striking against object, initial encounter

== ENCOUNTER → 2021-01-27 | Outpatient (CLI) | payer MEDICARE, MEDICAID | LOC: COL.RAD 08:00 | DX: E04.1 Nontoxic single thyroid nodule (principal); E05.90 Thyrotoxicosis, unspecified without thyrotoxic crisis or storm | CPT/HCPCS: A9516 ==

== ENCOUNTER 2021-03-07 10:23 | Emergency (ER) | payer MEDICARE, MEDICAID ==
[~2021-03-07] VITALS: Ht 152.4 cm; Wt 62.7 kg
[2021-03-07 10:24] VITALS: TEMP 98.3
[2021-03-07 11:40] VITALS: BP 137/82; PULSE 87
== END 2021-03-07 11:40 | disposition home or self-care (01) ==
LOC: COL.ER 10:23
DX: S20.20XA Contusion of thorax, unspecified, initial encounter (principal); K58.9 Irritable bowel syndrome, unspecified; Z87.891 Personal history of nicotine dependence; Z88.6 Allergy status to analgesic agent; Z79.899 Other long term (current) drug therapy; W01.0XXA Fall on same level from slipping, tripping and stumbling without subsequent striking against object, initial encounter

== ENCOUNTER → 2021-07-20 | Outpatient (CLI) | payer MEDICARE, MEDICAID | LOC: COL.RAD 12:56 | DX: E05.90 Thyrotoxicosis, unspecified without thyrotoxic crisis or storm (principal); E06.9 Thyroiditis, unspecified ==

== ENCOUNTER → 2021-07-28 | Outpatient (CLI) | payer MEDICARE, MEDICAID | LOC: COL.RAD 12:53 | DX: E05.00 Thyrotoxicosis with diffuse goiter without thyrotoxic crisis or storm (principal) | CPT/HCPCS: A9516 ==

== ENCOUNTER 2022-02-04 16:55 | Emergency (ER) | payer MEDICARE, MEDICAID ==
[~2022-02-04] VITALS: Ht 152.4 cm; Wt 63.6 kg
[2022-02-04 16:58] VITALS: BP 138/70; TEMP 97.8
[2022-02-04 18:17] VITALS: PULSE 89
== END 2022-02-04 18:17 | disposition home or self-care (01) ==
LOC: COL.ER 16:55
DX: G43.909 Migraine, unspecified, not intractable, without status migrainosus (principal)
CPT/HCPCS: J1200; J2765

== ENCOUNTER 2023-07-22 13:36 | Emergency (ER) | payer MEDICARE, MEDICAID ==
[~2023-07-22] VITALS: Ht 152.4 cm; Wt 54.5 kg
[~2023-07-22 13:36] MED LIST changes: +LIDODERM 5% PATC1 EA TP; +PRIL40 PO; +SINGULAIR 110 MG/TAB PO
[2023-07-22 13:40] VITALS: TEMP 97.7
[2023-07-22] MEDS ORDERED: ALEVE 220MG220 MG PO (13:49)
[2023-07-22] MEDS ORDERED: fentaNYL 50 MCG/ML 2 ML VIAL IV ONE (14:15)
[2023-07-22 14:31] LABS: BASO % 0.4 % (0.0-2.0); EOS # 0.2 K/mm3 (0.0-0.7); EOS % 2.9 % (0.0-4.0); GRAN # 5.3 K/mm3 (1.4-6.5); GRAN % 66.5 % (42.2-75.2); HEMATOCRIT 44.2 % (37.0-47.0); HEMOGLOBIN 14.7 g/dl (12.5-16.0); LYMPH # 1.8 K/mm3 (1.2-3.4); MEAN CELL VOLUME 84 fl (80.0-100.0); MEAN CORPUSCULAR HEMOGLOBIN 28 pg (27-31); MEAN CORPUSCULAR HGB CONC 33 g/dl (33.0-37.0); MEAN PLATELET VOLUME 10.3 fl (7.4-10.4); MONO # 0.6 K/mm3 (0.1-0.6); MONO % 7.1 % (1.7-9.3); PLATELET COUNT 265 K/mm3 (130-400); RED BLOOD COUNT 5.24 M/mm3 (4.10-5.30); REDCELL DISTRIBUTION WIDTH-CV 13.2 % (11.5-14.5)
[2023-07-22 14:56] LABS: ALANINE AMINOTRANSFERASE 14 U/L (0-55); ALBUMIN 3.4 g/dL (3.4-4.8); ALKALINE PHOSPHATASE 130 U/L (40-150); ANION GAP 10 mmol/L (7-16); AST,SGOT 15 U/L (5-34); BILIRUBIN,TOTAL 0.3 mg/dL (0.2-1.2); BLOOD UREA NITROGEN 17 mg/dL (10-20); CALCIUM 9.8 mg/dL (8.4-10.2); CHLORIDE 109 mEq/L (98-107); CREATININE, serum 0.87 mg/dL (0.57-1.11); GLUCOSE 120 mg/dL (70-99); POTASSIUM 4.5 mEq/L (3.5-4.5); SODIUM 141 mEq/L (136-145)
[2023-07-22 15:04] LABS: TROPONIN-I < 0.010 ng/mL (0.00-0.033)
[2023-07-22] MEDS ORDERED: Iohexol 350 - 100 ML VIAL IV ONE (15:20)
[2023-07-22] MEDS ORDERED: NS 100 ML IV SCH (15:21)
[2023-07-22 16:11] VITALS: BP 128/81; PULSE 98
== END 2023-07-22 16:03 | disposition home or self-care (01) ==
LOC: COL.ER 13:36
PROVIDERS: Nurse Practitioner Family
DX: R07.89 Other chest pain (principal); R07.2 Precordial pain; R06.02 Shortness of breath; Z88.6 Allergy status to analgesic agent; Z87.828 Personal history of other (healed) physical injury and trauma
CPT/HCPCS: J3010; Q9967

== ENCOUNTER → 2023-10-05 | Outpatient (CLI) | payer MEDICARE, MEDICAID ==
[~2023-10-05] MED LIST changes: +ALEVE 220MG220 MG PO
== END ==
LOC: MC.RAD 13:49
DX: Z12.31 Encounter for screening mammogram for malignant neoplasm of breast (principal)